=== PATIENT | male | born 1940 | race Caucasian/White ===

== ENCOUNTER 2020-06-13 21:41 | Emergency (ER) | payer MEDICARE, OTHER ==
--- NOTE | 2020-06-13 22:39 | RAD ---
Portable frontal chest radiograph: 06/13/2020 COMPARISON: 04/23/2017 HISTORY: Fever FINDINGS: Mild increased linear interstitial density noted within the right upper lobe and medial rig ht lung base, similar when compared to the 2017 exam. There is stable prominence of the thoracic aorta and cardiac silhouette. There is no pneumothorax or pleural fluid and no focal consolidation or alveolar edema. IMPRESSION: No significant interval change.
--- NOTE | 2020-06-13 22:57 | RAD ---
Frontal radiograph pelvis: 06/13/2020 COMPARISON: None HISTORY: Pain FINDINGS: A prominent inguinal hernia is suspected on the left. No widening of the sacroiliac joints or the pubic symphysis. There is postoperative hardware within the proximal left femur. There is prominent degenerative change within the lower lumbar spine. There is degenerative change of bilatera l sacroiliac joints. Diffuse osteopenia limits detailed assessment. No displaced fracture is appreciated on this exam. IMPRESSION: Limited study secondary to osteopenia. Prominent inguinal hernia suspected on the left wi th bowel extending into the region of the left scrotum. No displaced fracture is appreciated.
[2020-06-13 22:58] LABS: #Basophils 0.1 thou/uL (0.0-0.2); #Eosinphils 0.1 thou/uL (0.0-0.7); #Lymphocytes 0.7 thou/uL (1.20-3.40); #Monocytes 0.7 thou/uL (0.11-0.59); #Neutrophils 4.6 thou/uL (1.40-6.50); %Basophils 1.1 % (0.0-1.0); %Eosinophils 0.8 % (0.0-10.0); %Lymphocytes 11.9 % (21.0-51.0); %Monocytes 11.6 % (0.0-10.0); %Neutrophils 74.5 % (42.0-75.0); Hemoglobin 14.3 g/dL (14.0-18.0); Mean Corpuscular HGB CONC 33.1 g/dL (32.0-36.0); Mean Corpuscular Volume 90.5 fL (78.0-98.0); Mean Platelet Volume 8.3 fL (7.4-10.4); Platelet Count 228 thou/uL (130-400); RBC Distribution Width 12.6 % (11.5-14.5); Red Blood Cell (RBC) Count 4.78 mill/uL (4.70-6.10); White Blood Cell (WBC) Count 6.1 thou/uL (4.8-10.8)
[2020-06-13 23:13] LABS: ALT (SGPT) 13 U/L (8-55); AST (SGOT) 10 U/L (5-34); Albumin 3.5 g/dL (3.4-4.8); Alkaline Phosphatase 99 U/L (40-110); Anion Gap 15 mmol/L (10-20); BUN (Urea Nitrogen) 15 mg/dL (8.4-25.7); Bilirubin, Total 0.8 mg/dL (0.2-1.2); Calc. Creatinine Clearance 0 mL/min (70-130); Calcium 8.6 mg/dL (7.8-10.44); Carbon Dioxide 25 mmol/L (23-31); Chloride 103 mmol/L (98-107); Globulin 3.3 g/dL (2.4-3.5); Glucose 316 mg/dL (83-110); Potassium 3.9 mmol/L (3.5-5.1); Protein, Total 6.8 g/dL (5.8-8.1); Sodium 139 mmol/L (136-145)
[2020-06-13 23:44] LABS: Lipase Less than 4 U/L (8-78)
[2020-06-14 00:27] LABS: INR-International Normal Ratio 1.2; PTT 34.9 sec (22.9-36.1); Prothrombin Time 15.6 sec (12.0-14.7)
[2020-06-14] MEDS ORDERED: cefTRIAXone\\ROCEPHIN 2 GM VIAL ONE (00:40)
[2020-06-14] MEDS ORDERED: Nitrofurantoin Monohyd/M-Cryst 100 MG CAP ONE (01:35)
[2020-06-14 02:40] LABS: Lactic Acid 2.2 mmol/L (0.5-2.2)
[2020-06-15 01:24] LABS: SARS-CoV-2 PCR by NAA DETECTED (NotDetected)
== END 2020-06-14 02:52 ==
LOC: MADERS 21:41
DX: U07.1 COVID-19 (principal); N39.0 Urinary tract infection, site not specified; B37.2 Candidiasis of skin and nail; F03.90 Unspecified dementia, unspecified severity, without behavioral disturbance, psychotic disturbance, mood disturbance, and anxiety; E11.9 Type 2 diabetes mellitus without complications; I25.10 Atherosclerotic heart disease of native coronary artery without angina pectoris; I11.0 Hypertensive heart disease with heart failure; I50.9 Heart failure, unspecified; Z86.73 Personal history of transient ischemic attack (TIA), and cerebral infarction without residual deficits
CPT/HCPCS: 71045; 72170; 80053; 83605; 83690; 85025; 85610; 85730; 87040; 93005; 94760; 96374; 99284; U0003; U0005; 87635; J0696